=== PATIENT | male | born 1985 | race Two or more races ===

== ENCOUNTER 2021-02-03 09:55 | Emergency (ER) | payer OTHER ==
[2021-02-03 10:37] LABS: BASOPHIL 0.5 % (0-2); EOSINOPHIL 2.5 % (0-5); HGB 15.9 g/dl (13.2-18.0); LYMPHOCYTE 44.9 % (15-48); MCH 32.4 pg (25.0-31.0); MCHC 34.6 g/dL (32.0-36.0); MCV 93.9 fL (78.0-100.0); MONOCYTE 7.2 % (0-12); MPV 10.3 fL (6.0-9.5); NEUTROPHIL 44.7 % (41-80); NRBC 0; PLT 223 K/uL (150-400); RDW 11.5 % (11.5-14.0)
[2021-02-03 11:04] LABS: BUN/CREAT RATIO (CALC) 24.7 RATIO; CREATININE 0.73 mg/dL (0.67-1.17); POTASSIUM 4.3 mmol/L (3.5-5.1)
[2021-02-03 11:14] LABS: CKMB 0.7 ng/mL (0.0-3.6)
== END 2021-02-03 12:15 | disposition home or self-care (01) ==
LOC: FER 09:55
PROVIDERS: Emergency Medicine
DX: I10 Essential (primary) hypertension (principal); R07.89 Other chest pain; F17.210 Nicotine dependence, cigarettes, uncomplicated; R06.02 Shortness of breath
CPT/HCPCS: 36415; 71046; 80048; 82553; 84484; 85025; 93005